=== PATIENT | male | born 1975 | race Caucasian/White ===

== ENCOUNTER → 2021-12-17 | Day surgery (SDC) | payer BC | END | disposition home or self-care (01) | LOC: OR 05:54 | DX: K52.9 Noninfective gastroenteritis and colitis, unspecified (principal); R10.84 Generalized abdominal pain; K64.3 Fourth degree hemorrhoids; K64.4 Residual hemorrhoidal skin tags; E66.9 Obesity, unspecified; F17.210 Nicotine dependence, cigarettes, uncomplicated; Z68.32 Body mass index [BMI] 32.0-32.9, adult; Z88.0 Allergy status to penicillin; Z20.822 Contact with and (suspected) exposure to COVID-19 | CPT/HCPCS: J2001; J2704; J7040 ==

== ENCOUNTER → 2021-12-23 | Outpatient (CLI) | payer BC | LOC: EXRD 09:43 | DX: M25.562 Pain in left knee (principal); M89.8X6 Other specified disorders of bone, lower leg | CPT/HCPCS: 73564 ==

== ENCOUNTER → 2022-01-01 | Outpatient (CLI) | payer BC | LOC: EMI 09:53 | DX: M25.562 Pain in left knee (principal); S83.232A Complex tear of medial meniscus, current injury, left knee, initial encounter | CPT/HCPCS: 73721 ==

== ENCOUNTER → 2022-03-03 | Outpatient (CLI) | payer BC | LOC: RT 12:50 | DX: Z72.0 Tobacco use (principal) | CPT/HCPCS: 71046; 93005 ==